=== PATIENT | female | born 1945 | race Two or more races ===

== ENCOUNTER 2022-05-15 03:31 | Emergency (ER) | payer MEDICARE, MEDICAID ==
[~2022-05-15] VITALS: Ht 157.5 cm; Wt 61.2 kg
--- NOTE | 2022-05-15 03:33 | NUR ---
PT BIB [facility] FROM HOME C/O ITCHING AFTER TAKING ATB PO AROUND 2AM PRESCRIBED BY HER DENTIST. PT PRESENTS WITH NO SOB OR LABORED BREATHING, AFEBRILE. DENIES CP/PRESSURE. NO N/V/D. NO REDNESS OR SWELLING NOTED. DR. POTTS AT BEDSIDE.
[2022-05-15] MEDS ORDERED: DEXAMETHASONE 4 MG TABLET ONE ×2 (03:36→03:41)
[2022-05-15] MEDS ORDERED: diphenhydrAMINE 50 MG CAPSULE ONE (03:37)
[2022-05-15] MEDS ORDERED: DEXAMETHASONE 4 MG TABLET PO ONE ×2 (03:45)
[2022-05-15] MEDS ORDERED: diphenhydrAMINE 50 MG CAPSULE PO ONE (03:45)
[2022-05-15] MEDS ORDERED: DOXYCYCLINE HYCLATE 100 MG TABLET ONE (03:58)
[2022-05-15] MEDS ORDERED: DOXYCYCLINE HYCLATE 100 MG TABLET PO ONE (04:00)
[2022-05-15] MEDS ORDERED: FAMOTIDINE 20 MG TABLET ONE (05:14)
[2022-05-15] MEDS ORDERED: ONDANSETRON ODT 4 MG TAB.RAPDIS ONE (05:14)
[2022-05-15] MEDS ORDERED: ONDANSETRON ODT 4 MG TAB.RAPDIS SL ONE (05:15)
[2022-05-15] MEDS ORDERED: FAMOTIDINE 20 MG TABLET PO ONE (05:15)
[2022-05-15] MEDS ORDERED: EPIN0.3P3 IM (05:18)
--- NOTE | 2022-05-15 05:44 | NUR ---
CALLED [facility] SPOKE WITH MELANY AND SET UP TRANSPORTATUON TO BE DISCHARGED HOME. ETA 75-90 MINUTES.
--- NOTE | 2022-05-15 07:13 | NUR ---
REPORT GIVEN TO DARRELL CARUSO.
--- NOTE | 2022-05-15 08:29 | NUR ---
Pt requested a taxi, called taxi for the pt. Then pt changed her mind stating want to go w/ ambulance that was originally ordered for her.
--- NOTE | 2022-05-15 08:41 | NUR ---
Report given to bend sorter. Patient discharged to home in stable condition. Written and verbal after care instructions given. Patient verbalizes understanding of instructions. Stressed follow up or return to ER for worsening s/s. All belongings sent w/ pt.
[2022-05-15 08:43] VITALS: BP 112/60
== END 2022-05-15 08:46 | disposition home or self-care (01) ==
LOC: ER 03:57
DX: L29.9 Pruritus, unspecified (principal); R11.10 Vomiting, unspecified; F17.210 Nicotine dependence, cigarettes, uncomplicated
CPT/HCPCS: 99284; J8540 ×2; Q0163; A4663; Q0162

== ENCOUNTER 2023-05-25 11:14 | Inpatient (IN) | payer MEDICARE, OTHER ==
[~2023-05-25] VITALS: Ht 157.5 cm; Wt 59.0 kg
[~2023-05-25 11:14] MED LIST: EPIN0.3P3 IM
[2023-05-25] MEDS ORDERED: IV NORMAL SALINE 1000 ML BAG IV ONE (11:45)
[2023-05-25] MEDS ORDERED: LISINOPRIL PO (11:51)
[2023-05-25] MEDS ORDERED: ASPIRIN PO (11:51)
[2023-05-25] MEDS ORDERED: METOPROLOL PO (11:51)
[2023-05-25] MEDS ORDERED: SIMVASTATIN PO (11:51)
--- NOTE | 2023-05-25 11:55 | NUR ---
LIST OF HOME MEDS DERIVED FROM [facility] OPERATOR REPORT - PT UNABLE TO GIVE ACCURATE MEDS AND DOSAGES AT THIS TIME.
[2023-05-25] MEDS ORDERED: PIPERACILLIN SODIUM/TAZOBACTAM 3.375 G in IV DEXTROSE 5% 50 ML IV ONE (12:00)
[2023-05-25] MEDS ORDERED: ACETAMINOPHEN 650 MG SUPP.RECT RC ONE ×2 (12:00→12:22)
[2023-05-25 12:22] LABS: HEMATOCRIT 29.5 % (31.2-41.9); MEAN CORPUSCULAR HEMOGLOBIN 29.6 uug (24.7-32.8); MEAN CORPUSCULAR VOLUME 89.6 fL (75.5-95.3); PLATELET COUNT (AUTO) 98 K/uL (179-408)
[2023-05-25] MEDS ORDERED: PIPERACILLIN/TAZOBACTAM/D5W 50 ML IV ONE (12:22)
[2023-05-25 12:37] LABS: CARBON DIOXIDE 20 mmol/L (21-32); CHLORIDE 92 mmol/L (98-107); POTASSIUM 3.8 mmol/L (3.5-5.1); UREA NITROGEN, BLOOD 36 mg/dL (7-18)
[2023-05-25 12:45] LABS: ALANINE AMINOTRANSFERASE 20 U/L (14-59); ALKALINE PHOSPHATASE 59 U/L (50-136); ASPARTATE AMINOTRANSFERASE 21 U/L (15-37); BILIRUBIN,DIRECT 0.2 mg/dL (0.0-0.2); BILIRUBIN,TOTAL 0.4 mg/dL (0.2-1.0); TOTAL PROTEIN, SERUM 6.9 g/dL (6.4-8.2)
--- NOTE | 2023-05-25 13:41 | NUR ---
Pt finally tried to provide urine sample, unsucessful.
[2023-05-25] MEDS ORDERED: SERT25TA PO (14:32)
[2023-05-25] MEDS ORDERED: CLOP75TA33 PO (14:32)
[2023-05-25] MEDS ORDERED: NITR50CA PO (14:32)
[2023-05-25] MEDS ORDERED: VITAMIN D2 PO (14:32)
[2023-05-25] MEDS ORDERED: ZINC220T3 PO (14:32)
[2023-05-25] MEDS ORDERED: PROP15DR EACHEYE (14:33)
[2023-05-25] MEDS ORDERED: CLOPIDOGREL 75 MG TABLET PO SCH (15:00)
[2023-05-25] MEDS ORDERED: ASPIRIN 81 MG TAB.CHEW PO SCH (15:00)
[2023-05-25] MEDS ORDERED: ONDANSETRON 4 MG/2 ML VIAL IV PRN (15:00)
[2023-05-25] MEDS ORDERED: MAGNESIUM HYDROXIDE 30 ML LIQUID UDC PO PRN (15:00)
[2023-05-25] MEDS ORDERED: REMEDY ESSENTIAL ZINC PASTE 113 GM TP PRN (15:00)
[2023-05-25 15:46] VITALS: BP 91/39; TEMP 98.9; O2SAT 94
[2023-05-25 15:59] LABS: *BILIRUBIN,URIN NEGATIVE (NEGATIVE); *BLOOD, URINE 3+ (NEGATIVE); *CLARITY,URINE SLIGHTLY CLOUDY (CLEAR); *COLOR,URINE YELLOW (YELLOW); *KETONES,URINE TRACE (NEGATIVE); *UROBILINOGEN,URINE 0.2 E.U./dl (NORMAL); LEUKOCYTE ESTERASE ,URINE 2+ (NEGATIVE); NITRITE, URINE NEGATIVE (NEGATIVE); PH,URINE 5.5 (5.0-8.0); UGLUCOSE NEGATIVE (NEGATIVE)
[2023-05-25] MEDS ORDERED: LISINOPRIL 5 MG TABLET PO SCH (16:00)
[2023-05-25] MEDS: ZINC SULFATE 220 MG CAPSULE PO SCH (16:01)
[2023-05-25] MEDS: SERTRALINE HCL 50 MG TABLET PO SCH (16:43)
[2023-05-25] MEDS: METOPROLOL SUCCINATE XL 25 MG TAB.SR.24H PO SCH (16:43)
[2023-05-25] MEDS: PHENAZOPYRIDINE HCL 100 MG TABLET PO SCH ×2 (16:43→21:21)
[2023-05-25] MEDS: PIPERACILLIN SODIUM/TAZOBACTAM 3.375 G in IV DEXTROSE 5% 50 ML IV SCH (18:04)
[2023-05-25] MEDS: IV NS 1000 ML 1,000 ML IV PRN (19:00)
--- NOTE | 2023-05-25 19:01 | NUR ---
Patient is having loose stool with liquid consistency x2 since admission at 1450.
--- NOTE | 2023-05-25 19:22 | NUR ---
Handoff with DARRELL Enriquez.
[2023-05-25 19:56] LABS: *CREATININE,URINE 84.6 mg/dL (30-125); *URINE TOTAL PROTEIN RANDOM 183.9 mg/dL (<150/24HR)
[2023-05-25] MEDS: SIMVASTATIN 20 MG TABLET PO SCH (20:38)
[2023-05-25] MEDS: ZOLPIDEM 5 MG TABLET PO PRN (21:21)
[2023-05-25] MEDS: ACETAMINOPHEN 325 MG TABLET PO PRN (21:35)
[2023-05-25 21:45] VITALS: BP 103/46; TEMP 102.6; O2SAT 92
--- NOTE | 2023-05-25 21:45 | NUR ---
Patient alert oriented, no sob no chest pain, tele monitor sinus rhythm, has elevated temp 102.6 oral, given tylenol 650mg plus cooling measures, notified Olga Perez NP with no new order at this time, awaiting for urine and blood culture, cont to monitor.
[2023-05-25 22:45] VITALS: TEMP 98.1
--- NOTE | 2023-05-25 22:45 | NUR ---
Patient asleep but arousable, no sob no chest pain, tele monitor sinus rhythm, recheck temp 98.1 oral, complain of abdominal pain, will medicate patient accordingly. Reported with watery BM twice, will monitor will collect bm if possible, cont to monitor.
[2023-05-26] MEDS: PIPERACILLIN SODIUM/TAZOBACTAM 3.375 G in IV DEXTROSE 5% 50 ML IV SCH ×2 (00:07→05:05)
[2023-05-26 03:06] LABS: BACTERIA,URINE FEW /HPF (NONE SEEN); SQUAMOUS EPITHELIAL CELL,UR FEW /HPF (NONE SEEN)
--- NOTE | 2023-05-26 04:30 | NUR ---
Patient complain of shortness of breath, pulled up patient, hob elevate 40 degrees, given 2 liter nc sat 96%, tele monitor sinus rhythm, complain of abdominal pain, given tylenol 650mg po, had 1 large watery soft BM, unable to collect the the 3rd specimen, will endorse to next shift
[2023-05-26] MEDS: ACETAMINOPHEN 325 MG TABLET PO PRN (04:44)
[2023-05-26] MEDS: PHENAZOPYRIDINE HCL 100 MG TABLET PO SCH (05:05)
[2023-05-26 06:59] LABS: MEAN CORPUSCULAR HEMOGLOBIN 30.1 uug (24.7-32.8); MEAN CORPUSCULAR VOLUME 89.4 fL (75.5-95.3); PLATELET COUNT (AUTO) 96 K/uL (179-408)
[2023-05-26 07:28] LABS: THYROID STIMULATING HORMONE 0.348 mIU/mL (0.358-3.740)
[2023-05-26 07:39] LABS: CARBON DIOXIDE 17 mmol/L (21-32); CHLORIDE 98 mmol/L (98-107); CHOLESTEROL 81 mg/dL (<200); CREATININE 2.1 mg/dL (0.6-1.3); HDL CHOLESTEROL 12 mg/dL (40-60); MAGNESIUM 1.6 mg/dL (1.8-2.4); PHOSPHOROUS 2.8 mg/dL (2.5-4.9); TRIGLYCERIDES 148 MG/DL (30-150); UREA NITROGEN, BLOOD 36 mg/dL (7-18)
[2023-05-26] MEDS ORDERED: POTASSIUM CHLORIDE 20 MEQ TAB.PRT.SR PO ONE (08:15)
[2023-05-26] MEDS: METOPROLOL SUCCINATE XL 25 MG TAB.SR.24H PO SCH (09:00)
[2023-05-26] MEDS ORDERED: MAGNESIUM SULFATE/D5W 100 ML IV SCH (09:00)
[2023-05-26] MEDS ORDERED: ERGO500040 PO (09:28)
[2023-05-26] MEDS ORDERED: ASPI-495 PO (09:40)
[2023-05-26] MEDS: ZINC SULFATE 220 MG CAPSULE PO SCH (09:41)
[2023-05-26] MEDS ORDERED: LISI-782 PO (09:41)
[2023-05-26] MEDS ORDERED: METO-356 PO (09:42)
[2023-05-26] MEDS ORDERED: SIMV-46 PO (09:42)
[2023-05-26] MEDS: SERTRALINE HCL 50 MG TABLET PO SCH (09:46)
[2023-05-26] MEDS: IV NS 1000 ML 1,000 ML IV PRN ×2 (09:47→17:12)
[2023-05-26] MEDS ORDERED: IPRA42SP NS (10:36)
[2023-05-26] MEDS ORDERED: MIRA25TA PO (10:38)
[2023-05-26] MEDS ORDERED: OMEP40CA21 PO (10:41)
[2023-05-26 11:35] VITALS: BP 120/51; TEMP 98.9; O2SAT 93
[2023-05-26] MEDS ORDERED: IV NORMAL SALINE 500 ML IV ONE (12:15)
[2023-05-26] MEDS ORDERED: PHENAZOPYRIDINE HCL 100 MG TABLET PO SCH (14:00)
[2023-05-26 16:01] VITALS: BP 102/48; TEMP 100.4; O2SAT 99
[2023-05-26] MEDS: PIPERACILLIN SODIUM/TAZOBACTAM 3.375 G in IV DEXTROSE 5% 100 ML IV SCH (17:12)
--- NOTE | 2023-05-26 18:30 | NUR ---
Shift Note: Patient remains alert, oriented to person, place, situation. Oxygen as needed for comfort. NSR on telemetry. Continent/incontinent. IV to left forearm pulled out and replace to right forearm. Continues on antibiotics, tolerated well. Abnormal labs reported. Blood pressure low, bolus given with improvement. Will continue current POC.
[2023-05-26 20:00] VITALS: BP 107/47; TEMP 100.3; O2SAT 92
[2023-05-26] MEDS: SIMVASTATIN 20 MG TABLET PO SCH (20:42)
[2023-05-26] MEDS: ZOLPIDEM 5 MG TABLET PO PRN (21:33)
[2023-05-27] VITALS: TEMP 102
[2023-05-27] MEDS: ACETAMINOPHEN 325 MG TABLET PO PRN ×2 (00:07→20:24)
[2023-05-27 05:00] VITALS: BP 151/85; TEMP 97.4; O2SAT 99
[2023-05-27] MEDS: PIPERACILLIN SODIUM/TAZOBACTAM 3.375 G in IV DEXTROSE 5% 100 ML IV SCH ×2 (05:08→17:17)
[2023-05-27 06:51] LABS: HEMATOCRIT 25.1 % (31.2-41.9); MEAN CORPUSCULAR HEMOGLOBIN 29.9 uug (24.7-32.8); MEAN CORPUSCULAR VOLUME 89.3 fL (75.5-95.3); PLATELET COUNT (AUTO) 116 K/uL (179-408)
[2023-05-27 06:56] LABS: CARBON DIOXIDE 18 mmol/L (21-32); CHLORIDE 104 mmol/L (98-107); CREATININE 1.8 mg/dL (0.6-1.3); MAGNESIUM 1.9 mg/dL (1.8-2.4); PHOSPHOROUS 2.7 mg/dL (2.5-4.9); POTASSIUM 3.4 mmol/L (3.5-5.1); UREA NITROGEN, BLOOD 31 mg/dL (7-18)
--- NOTE | 2023-05-27 07:28 | NUR ---
REPORT GIVEN TO DARRELL BECKMAN
[2023-05-27 08:00] VITALS: BP 122/67; TEMP 97.1; O2SAT 95
[2023-05-27] MEDS: METOPROLOL SUCCINATE XL 25 MG TAB.SR.24H PO SCH (09:00)
[2023-05-27] MEDS: SERTRALINE HCL 50 MG TABLET PO SCH (10:10)
[2023-05-27] MEDS: ZINC SULFATE 220 MG CAPSULE PO SCH (10:11)
[2023-05-27 16:00] VITALS: BP 113/78; TEMP 98.3; O2SAT 96
[2023-05-27] MEDS: IV NS 1000 ML 1,000 ML IV PRN (17:18)
--- NOTE | 2023-05-27 18:18 | NUR ---
Shift Note: Patient awake, alert to person, place, and situation. Oxygen as needed for comfort. pm technician removed. Brooks catheter removed, patient with diaper. No changes in skin integrity. Poor appetite. Assisted with meals, encouraged PO intake. Continues with IV fluids and antibiotics, tolerating well. Assisted as needed with ADL's. Family visited today. Will continue with current POC.
[2023-05-27 20:00] VITALS: BP 109/47; TEMP 99.1; O2SAT 99
[2023-05-27] MEDS: SIMVASTATIN 20 MG TABLET PO SCH (20:24)
[2023-05-28 04:00] VITALS: BP 127/54; TEMP 99.3; O2SAT 98
[2023-05-28] MEDS: PIPERACILLIN SODIUM/TAZOBACTAM 3.375 G in IV DEXTROSE 5% 100 ML IV SCH (05:22)
[2023-05-28] MEDS: ACETAMINOPHEN 325 MG TABLET PO PRN (05:45)
[2023-05-28 06:57] LABS: HEMATOCRIT 26.8 % (31.2-41.9); MEAN CORPUSCULAR HEMOGLOBIN 29.5 uug (24.7-32.8); MEAN CORPUSCULAR VOLUME 88.6 fL (75.5-95.3); PLATELET COUNT (AUTO) 128 K/uL (179-408)
[2023-05-28 07:12] LABS: CARBON DIOXIDE 18 mmol/L (21-32); CHLORIDE 105 mmol/L (98-107); CREATININE 1.6 mg/dL (0.6-1.3); MAGNESIUM 1.8 mg/dL (1.8-2.4); PHOSPHOROUS 1.7 mg/dL (2.5-4.9); POTASSIUM 4.2 mmol/L (3.5-5.1); UREA NITROGEN, BLOOD 24 mg/dL (7-18)
[2023-05-28 08:00] VITALS: BP 111/67; TEMP 97.9; O2SAT 99
[2023-05-28] MEDS: METOPROLOL SUCCINATE XL 25 MG TAB.SR.24H PO SCH (09:51)
[2023-05-28] MEDS: ZINC SULFATE 220 MG CAPSULE PO SCH (09:51)
[2023-05-28] MEDS: SERTRALINE HCL 50 MG TABLET PO SCH (09:51)
[2023-05-28] MEDS ORDERED: CIPR500T5 PO (12:34)
[2023-05-28 13:02] VITALS: BP 111/56; TEMP 98.1; O2SAT 97
[2023-05-28] MEDS ORDERED: PIPERACILLIN SODIUM/TAZOBACTAM 3.375 G in IV DEXTROSE 5% 100 ML IV SCH (14:00)
[2023-05-28] MEDS: IV NS 1000 ML 1,000 ML IV PRN (14:32)
[2023-05-28] MEDS ORDERED: NEUTRA PHOS PACKET PO ONE (15:45)
[2023-05-28 16:24] VITALS: BP 115/52; TEMP 97.9; O2SAT 97
--- NOTE | 2023-05-28 17:25 | NUR ---
Discharge instructions explained to patient and son. Both verbalized understanding and son signed. Saline lock discontinued. Patient escorted out to private car via wheelchair.
[2023-05-29 13:06] LABS: A/G RATIO 0.8 (0.7-1.7); ALBUMIN 2.4 g/dL (2.9-4.4); ALPHA-1-GLOBULIN 0.5 g/dL (0.0-0.4); BETA GLOBULIN 0.8 g/dL (0.7-1.3); GAMMA GLOBULIN 0.7 g/dL (0.4-1.8); M-SPIKE Not Observed g/dL (Not Observed)
== END 2023-05-28 17:45 | disposition home health service (06) | DRG 871 ==
LOC: ER 11:14 → TELE3 14:30 → MEDSURG3 05-27 12:45
PROVIDERS: ADMIT Nurse Practitioner Acute Care; ATTEND Nurse Practitioner Acute Care
DX: A41.50 Gram-negative sepsis, unspecified (principal); N17.0 Acute kidney failure with tubular necrosis; N12 Tubulo-interstitial nephritis, not specified as acute or chronic; E87.1 Hypo-osmolality and hyponatremia; E44.0 Moderate protein-calorie malnutrition; Z95.820 Peripheral vascular angioplasty status with implants and grafts; E86.0 Dehydration; E87.6 Hypokalemia; F17.210 Nicotine dependence, cigarettes, uncomplicated; Z88.6 Allergy status to analgesic agent; K57.30 Diverticulosis of large intestine without perforation or abscess without bleeding; K80.20 Calculus of gallbladder without cholecystitis without obstruction; E86.1 Hypovolemia; E88.09 Other disorders of plasma-protein metabolism, not elsewhere classified; D64.9 Anemia, unspecified; Z79.02 Long term (current) use of antithrombotics/antiplatelets; M32.9 Systemic lupus erythematosus, unspecified; I73.9 Peripheral vascular disease, unspecified; Z79.899 Other long term (current) drug therapy; R00.0 Tachycardia, unspecified
CPT/HCPCS: 36415; 71045; 83605; 83735; 83970; 84100; 84155; 84165; 84300; 84443; 84484; 84550; 85025; 85730; 87040; 93005; A4663; G0378; J2543; J3475; J7040; J7060